=== PATIENT | female | born 1950 | race Caucasian/White ===

== ENCOUNTER 2017-01-22 10:51 | Emergency (ER) | payer BC ==
[~2017-01-22] VITALS: Ht 162.6 cm; Wt 63.1 kg
[2017-01-22 11:02] VITALS: BP 140/80; PULSE 108; RESP 16; TEMP 98.5; O2SAT 96
[2017-01-22] MEDS ORDERED: DULC100C PO (11:15)
[2017-01-22 11:23] VITALS: BP 131/78; PULSE 112; RESP 18; O2SAT 99
--- NOTE | 2017-01-22 11:26 | PD ---
HPI Chief Complaint: GI Complaint Time Seen by Provider: 11:12 Travel History International Travel<30 days: No Contact w/Intl Traveler<30days: No Traveled to known affect area: No History of Present Illness HPI 66-year-old female presents with one-month history of intermittent left lower quadrant abdominal pain and general ill feeling. She states she went to an urgent care where they did an x-ray but advised her as her symptoms persisted to come to the emergency department for further workup. She states she's also been intermittently dealing with constipation over the past couple weeks. She denies other concurrent complaints. Quality is pressure. Severity is mild. She denies any active pain at this moment. PFSH Past Medical History Medical History: Denies Significant Hx Diminished Hearing: No Influenza Vaccination: No ?: Not Past Surgical History Hysterectomy: Yes Social History Alcohol Use: No Tobacco Use: No Allergies-Medications (Allergen,Severity, Reaction): Coded Allergies: No Known Allergies (Unverified , 01/22/17) Reported Meds & Prescriptions Reported Meds & Active Scripts Active Reported Dulcolax Stool Softener (Docusate Sodium) 100 Mg Cap 100 Mg PO BID Review of Systems Except as stated in HPI: all other systems reviewed are Neg Physical Exam Narrative GENERAL: Well-nourished, well-developed patient. Well-appearing SKIN: Warm and dry. HEAD: Normocephalic and atraumatic. EYES: No injection or drainage. ENT: No nasal drainage noted. NECK: Supple, trachea midline. CARDIOVASCULAR: Regular rate and rhythm RESPIRATORY: No increased effort. No accessory muscle use. GASTROINTESTINAL: Abdomen soft, mild tenderness left lower quadrant with deep palpation, nondistended. No rebound or guarding NEUROLOGICAL: Awake and alert. Moves all extremities. Normal speech. Data Data Last Documented VS Vital Signs Date Time Temp Pulse Resp B/P Pulse Ox O2 Delivery O2 Flow Rate FiO2 01/22/17 12:31 105 18 136/78 97 Room Air 01/22/17 11:02 98.5 Orders Basic Metabolic Panel (Bmp) (01/22/17 11:17) Complete Blood Count With Diff (01/22/17 11:17) Ct Abd/Pel W Iv Contrast(Rout) (01/22/17 11:17) Iv Access Insert/Monitor (01/22/17 11:17) Ecg Monitoring (01/22/17 11:17) Oximetry (01/22/17 11:17) Sodium Chloride 0.9% Flush (Ns Flush) (01/22/17 11:30) Iohexol 350 Inj (Omnipaque 350 Inj) (01/22/17 13:05) Labs Laboratory Tests Test 01/22/17 11:20 White Blood Count 7.7 TH/MM3 Red Blood Count 4.56 MIL/MM3 Hemoglobin 13.7 GM/DL Hematocrit 40.1 % Mean Corpuscular Volume 88.1 FL Mean Corpuscular Hemoglobin 30.0 PG Mean Corpuscular Hemoglobin 34.1 % Concent Red Cell Distribution Width 12.3 % Platelet Count 172 TH/MM3 Mean Platelet Volume 9.2 FL Neutrophils (%) (Auto) 67.6 % Lymphocytes (%) (Auto) 22.8 % Monocytes (%) (Auto) 7.7 % Eosinophils (%) (Auto) 0.5 % Basophils (%) (Auto) 1.4 % Neutrophils # (Auto) 5.2 TH/MM3 Lymphocytes # (Auto) 1.8 TH/MM3 Monocytes # (Auto) 0.6 TH/MM3 Eosinophils # (Auto) 0.0 TH/MM3 Basophils # (Auto) 0.1 TH/MM3 CBC Comment DIFF FINAL Differential Comment Sodium Level 136 MEQ/L Potassium Level 3.9 MEQ/L Chloride Level 99 MEQ/L Carbon Dioxide Level 27.7 MEQ/L Anion Gap 9 MEQ/L Blood Urea Nitrogen 5 MG/DL Creatinine 1.10 MG/DL Estimat Glomerular Filtration 50 ML/MIN Rate Random Glucose 106 MG/DL Calcium Level 9.1 MG/DL [facility] Medical Decision Making Medical Screen Exam Complete: Yes Emergency Medical Condition: Yes Medical Record Reviewed: Yes (past history confirmed) Interpretation(s) CBC & BMP Diagram 01/22/17 11:20 Last 24 hours Impressions Abdomen/Pelvis CT 01/22/17 1117 Signed Impressions: Service Date/Time: Sunday, January 22, 2017 12:05 - CONCLUSION: 1. Abnormal appearance the liver with a 1.5 cm uniformly enhancing mass in the dome and multiple cysts in the left lobe. Recommend further characterization of the right lobe lesion with multiphasic MRI to differentiate between a hemangioma, adenoma, and tumor. 2. Scattered diverticula in the sigmoid without radiographic evidence of diverticulitis. Gregorio Jeong MD Differential Diagnosis Diverticulitis, mass, stone Narrative Course Will check blood work, CT scan and reevaluate Labs without emergent findings, CT with mass on liver needing further outpatient testing. Given copy for outpatient follow-up. She agrees to have this followed as well as her constipation with a primary and GI specialist.Patient denies any new complaints, all questions answered. Patient knows that follow up is incumbent on them and to return to the emergency room immediately if new or worsening symptoms develop. Patient given strict return precautions, vitals reviewed and are normal, agrees to further workup as an outpatient. Diagnosis Primary Impression: Abdominal pain Qualified Code: R10.32 - Left lower quadrant pain Additional Impression: Liver lesion Patient Instructions: General Instructions Additional Instructions: set up a primary, return as needed Med/Other Pt SpecificInfo: No Change to Meds Disposition: 01 DISCHARGE HOME Condition: Stable Hui Aragon MD Jan 22, 2017 11:26
[2017-01-22 11:29] LABS: AUTOMATED NEUTROPHIL # 5.2 TH/MM3 (1.8-7.7); BASOPHIL # 0.1 TH/MM3 (0-0.2); BASOPHIL % 1.4 % (0.0-2.0); EOSINOPHIL % 0.5 % (0.0-4.0); HEMATOCRIT 40.1 % (35.0-46.0); HEMO FLAGS DIFF FINAL; LYMPH % 22.8 % (9.0-44.0); LYMPHOCYTE # 1.8 TH/MM3 (1.0-4.8); MEAN CELL VOLUME 88.1 FL (80.0-100.0); MEAN CORPUSCULAR HGB CONC 34.1 % (32.0-36.0); MONO % 7.7 % (0.0-8.0); NEUT % 67.6 % (16.0-70.0); PLATELET COUNT 172 TH/MM3 (150-450); RED BLOOD COUNT 4.56 MIL/MM3 (4.00-5.30); RED CELL DISTRIBUTION WIDTH 12.3 % (11.6-17.2); WHITE BLOOD COUNT 7.7 TH/MM3 (4.0-11.0)
[2017-01-22] MEDS ORDERED: SODIUM CHLORIDE 0.9% FLUSH 10 ML FLUSH IV FLUSH PRN (11:30)
[2017-01-22 11:38] LABS: POTASSIUM 3.9 MEQ/L (3.5-5.1)
[2017-01-22 11:42] LABS: BICARBONATE 27.7 MEQ/L (21.0-32.0)
[2017-01-22 12:31] VITALS: BP 136/78; PULSE 105; RESP 18; O2SAT 97
[2017-01-22] MEDS ORDERED: IOHEXOL 350 MG/ML 10 ML VIAL (for RAD DIAG) IV ONE (13:05)
--- NOTE | 2017-01-22 13:13 | RADHPO ---
EXAM DATE/TIME: 01/22/2017 12:05 [facility] COMPARISON: No previous studies available for comparison. INDICATIONS : Constipation. IV CONTRAST: 75 cc Omnipaque 350 (iohexol) IV ORAL CONTRAST: No oral contrast ingested. RADIATION DOSE: 6.95 CTDIvol (mGy) MEDICAL HISTORY : None SURGICAL HISTORY : Hysterectomy. ENCOUNTER: Initial ACUITY: 1 month PAIN SCALE: 0/10 LOCATION: abdomen/pelvis TECHNIQUE: Volumetric scanning of the abdomen and pelvis was performed. Using automated exposure control and ad justment of the mA and/or kV according to patient size, radiation dose was kept as low as reasonably achievable to obtain optimal diagnostic quality images. FINDINGS: LOWER LUNGS: The visualized lower lungs are clear. LIVER: There is a homogeneously enhancing 1.6 cm mass along the surface of the posterior dome of the liver. In the left lobe liver, there are multiple low density lesions measure between 5 mm and 1.[address] density 8 Hounsfield units suggesting multiple cysts. No evidence of biliary ductal dilatati on. No calcified gallstones. SPLEEN: Normal size without lesion. PANCREAS: Within normal limits. KIDNEYS: Normal in size and shape. There is no mass, stone or hydronephrosis. ADRENAL GLANDS: Within normal limits. VASCULAR: There is no aortic aneurysm. BOWEL/MESENTERY: No dilated loops of small and large bowel. There are several small diverticula in the sigmoid colon. No radiographic evidence of diverticulitis. The appendix is identified in the right lower quadrant , lumen contains gas and the size is normal. ABDOMINAL WALL: Within normal limits. RETROPERITONEUM: There is no lymphadenopathy. BLADDER: No wall thickening or mass. REPRODUCTIVE: Within normal limits. INGUINAL: There is no lymphadenopathy or hernia. MUSCULOSKELETAL: Within normal limits for patient age. CONCLUSION: 1. Abnormal appearance the liver with a 1.5 cm uniformly enhancing mass in the dome and multiple cyst s in the left lobe. Recommend further characterization of the right lobe lesion with multiphasic MRI to differentiate between a hemangioma, adenoma, and tumor. 2. Scattered diverticula in the sigmoid without radiographic evidence of diverticulitis. Gregorio Jeong MD on January 22, 2017 at 12:57 Board Certified Radiologist. This report was verified electronically.
== END 2017-01-22 13:41 | disposition home or self-care (01) ==
LOC: PHED 10:51
DX: R10.32 Left lower quadrant pain (principal); K59.00 Constipation, unspecified; K76.9 Liver disease, unspecified; K57.30 Diverticulosis of large intestine without perforation or abscess without bleeding
CPT/HCPCS: 74177; 80048; 85025; 99284; Q9967

== ENCOUNTER 2017-03-15 06:23 | Day surgery (SDC) | payer MEDICARE, BC ==
[~2017-03-15] VITALS: Ht 162.6 cm; Wt 61.4 kg
[~2017-03-15 06:23] MED LIST: DULC100C PO
[2017-03-15 06:41] VITALS: BP 125/91; PULSE 96; RESP 20; TEMP 98.4; O2SAT 100
[2017-03-15] MEDS ORDERED: PROT40TA PO (06:41)
[2017-03-15] MEDS ORDERED: LACTATED RINGER'S 1000 ML IV PRN (07:15)
[2017-03-15] MEDS ORDERED: METOPROLOL TARTRATE 25 MG TAB PO PRN (07:15)
[2017-03-15] MEDS ORDERED: SODIUM CHLOR 0.9% 1000 ML IV SCH (07:15)
[2017-03-15] MEDS ORDERED: POVIDONE IODINE 5% (ANTISEPSIS KIT) 4 APPLICATIONS EACH NARE PRN (07:15)
[2017-03-15] MEDS ORDERED: INSULIN HUMAN REGULAR 1,000 UNITS/10 ML VIAL SQ PRN (07:15)
[2017-03-15] MEDS ORDERED: SODIUM CHLORID 0.9% 500 ML IV PRN (07:15)
[2017-03-15] MEDS ORDERED: CHLORHEXIDINE GLUCONATE 2 % 1 PACK (2 CLOTHS) TOPICAL PRN (07:15)
[2017-03-15] MEDS ORDERED: LIDOCAINE HCL 1% 20 ML VIAL ONE (08:38)
[2017-03-15] MEDS ORDERED: GELATIN 12 MM/7 MM FOAM ONE (09:00)
[2017-03-15] MEDS ORDERED: THROMBIN (TOPICAL) 5,000 UNIT VIAL ONE (09:00)
[2017-03-15] MEDS ORDERED: ONDANSETRON HCL 4 MG/2 ML VIAL IV PUSH ONE (09:53)
[2017-03-15] MEDS ORDERED: PHENYLEPH/NS 1000 MCG/10 ML SYR IV ONE (09:53)
[2017-03-15] MEDS ORDERED: ePHEDrine/NS 25 MG/5 ML SYR IV ONE (09:53)
[2017-03-15] MEDS ORDERED: NEOSTIGMINE 3 MG/3 ML SYR IV ONE (09:53)
[2017-03-15] MEDS ORDERED: PROPOFOL 200 MG/20 ML AMP IV ONE (09:53)
[2017-03-15 10:48] VITALS: TEMP 97.8
[2017-03-15] MEDS ORDERED: fentaNYL CITRATE 250 MCG/5 ML AMP ONE (11:04)
[2017-03-15] MEDS ORDERED: MIDAZOLAM HCL 2 MG/2 ML VIAL ONE (11:06)
[2017-03-15 11:30] VITALS: BP 115/71; PULSE 89; RESP 18; O2SAT 96
--- NOTE | 2017-03-15 11:36 | PD.RAD ---
Post CT Procedure Prog Note Pre Procedure Diagnosis: (1) Liver lesion Post Procedure Diagnosis: (1) Liver lesion Procedure Date: Mar 15, 2017 Supervising Radiologist: Jaison Phillips Proceduralist/Assist: Sabina Perez RT(R)(CT) Anesthesia: General Plan of Activity Patient to Unit: PACU Patient Condition: Good See PACS Report for procedural detail/treatment Biopsy Imaging Guidance: CT Side: Right Biopsy Procedure: Liver Specimen: Core Biopsy Findings: Posterior, subcapsular lesion. Hypervascular. Tract embolized with thrombin and gelfoam slurry. Jaison Phillips MD Mar 15, 2017 11:36
--- NOTE | 2017-03-15 12:09 | RADRPT ---
EXAM DATE/TIME: 03/15/2017 09:25 [facility] COMPARISON: No previous studies available for comparison. INDICATIONS : Liver mass. BIOPSY SITE: Right Anesthesia and pain control was provided by the Anesthesia department. DEVICE(S): 1.) 20 gauge Temno core biopsy needle MEDICAL HISTORY : None. SURGICAL HISTORY : None. ENCOUNTER: Initial ACUITY: 1 day PAIN SCORE: 0/10 LOCATION: Right A total of one core specimen(s) were obtained and sent to the laboratory for pathologic evaluation. PROCEDURE: 1. CT guided liver biopsy. 2. Conscious sedation with continuous EKG and oximetry monitoring. 3. EKG and oximetry remained stable throughout the procedure. Prior to the procedure informed consent was obtained. Any appropriate prior imaging studies were rev iewed. Using automated exposure control and adjustment of the mA and/or kV according to patient size, radiat ion dose was kept as low as reasonably achievable to obtain optimal diagnostic quality images. The site was prepped in a sterile fashion. Full sterile technique was used, including cap, mask, hollis rile gloves and gown and a large sterile sheet. Hand hygiene and 2% chlorhexidine and/or betadine/al cohol prep was utilized per protocol for cutaneous antisepsis. The skin and subcutaneous tissues wer e infiltrated with local anesthetic solution. With CT and Veran guidance the previously identified target was localized. Tip localized guide needle was advanced to the edge of the lesion. Position was confirmed with CT. Biopsy was performed using t he prescribed needle as above. Because of the hypervascular nature of the lesion, the tract was then embolized with a Gelfoam and thrombin slurry. Adequate hemostasis was obtained with compression at t he puncture site. Follow-up CT scan reveals no hemorrhage. The patient tolerated the procedure well and there were no complications. The patient was returned to the Radiology Outpatient Unit in stable condition. CONCLUSION: Uncomplicated CT guided biopsy. Jaison Phillips MD on March 15, 2017 at 12:01 Board Certified Radiologist. This report was verified electronically.
[2017-03-15 12:30] VITALS: BP 112/50; PULSE 102; RESP 20; O2SAT 97
[2017-03-15 13:00] VITALS: BP 112/63; PULSE 106; RESP 18; O2SAT 92
[2017-03-15 14:37] VITALS: BP 100/60; PULSE 107; RESP 20; O2SAT 91
--- NOTE | 2017-03-15 17:17 | EKG ---
Date Performed: 03/15/2017 Time Performed: 07:02:26 PTAGE: 67 years EKG: Sinus rhythm LOW QRS VOLTAGE IN PRECORDIAL LEADS ABNORMAL ECG NO PREVIOUS TRACING DOCTOR: Vito Clifford Interpretating Date/Time 03/15/2017 17:16:50
== END 2017-03-15 15:00 | disposition home or self-care (01) ==
LOC: HROP 06:23 → HRIP 06:29 → HROP 15:00
DX: K76.9 Liver disease, unspecified (principal); Z01.810 Encounter for preprocedural cardiovascular examination
CPT/HCPCS: 47000; 77012; 88307; 93005; J2250; J3010; J7030; J2370; J2405; J2710